=== PATIENT | female | born 1980 | race Caucasian/White ===

== ENCOUNTER 2016-12-01 05:50 | Inpatient (IN) | payer OTHER ==
[2016-12-01] MEDS ORDERED: BUTORPHANOL TARTRATE 1 MG/ML VIAL IVPB ONE (06:00)
[2016-12-01] MEDS ORDERED: DEXTROSE 5%-LACTATED RINGERS 1,000 ML IV SCH (06:00)
[2016-12-01] MEDS ORDERED: PROMETHAZINE HCL 25 MG/1 ML VIAL IVPB ONE (06:00)
[2016-12-01 06:38] LABS: BASOPHIL 0.4 % (0-2.0); EOSINOPHIL 0.5 % (0-4.5); MCH 25.4 pg (25.7-33.7); MCHC 32.2 g/dl (32.0-36.0); MEAN CELL VOLUME 78.7 fl (80-96); MEAN PLT VOLUME 8.9 fl (7.5-11.1); NEUTROPHILS 56.4 % (42.8-82.8); PLATELET COUNT 293 K/MM3 (134-434); RDW 15.3 % (11.6-15.6); WHITE BLOOD COUNT 8.3 K/mm3 (4.0-10.0)
[2016-12-01 06:41] VITALS: BMI 30.4
[2016-12-01 06:57] LABS: INR 0.93 (0.82-1.09); PROTHROMBIN TIME (PATIENT) 10.2 SEC (9.98-11.88)
[2016-12-01 07:00] LABS: ACTIVATED PTT 25.3 SECONDS (26.9-34.4)
[2016-12-01 07:03] LABS: CALCIUM 8.5 mg/dL (8.5-10.1); COCKROFT - GAULT 110.67; CREATININE 0.8 mg/dL (0.55-1.02)
--- NOTE | 2016-12-01 07:10 | HP ---
Past Medical History - Primary Care Physician PCP:: Deep Malcolm - Admission Chief Complaint: 38 weeks, labor History of Present Illness: 36 yo f g 9 [id number] edc by sono 12/13/16 , 38 weeks, in labor, cx 8 cm 100 ,vx -2 mi, fhr cat 1, contraction regular History Source: Patient Limitations to Obtaining History: Language Barrier - Past Medical History ...: 9 ...Para: 6 ...Term: 6 ...: 0 ...Spon : 1 ...Induced : 0 ...Multiple Gestation: 0 ...LMP: 03/08/16 ... Weeks Gestation by Dates: 38.1 ...EDC by Dates: 12/13/16 ...EDC by Sono: 12/14/16 Additional OB History: 6 . no complication Heme/Onc: Yes: Anemia - Past Surgical History Past Surgical History: Yes: None Hx Myomectomy: No Hx Transabdominal Cerclage: No - Smoking History Smoking history: Never smoked Have you smoked in the past 12 months: No Aproximately how many cigarettes per day: 0 - Alcohol/Substance Use Hx Alcohol Use: No History of Substance Use: reports: None - Social History History of Recent Travel: No Home Medications - Allergies Allergies/Adverse Reactions: Allergies Allergy/AdvReac Type Severity Reaction Status Date / Time No Known Allergies Allergy Verified 12/01/16 06:57 - Home Medications Home Medications: Ambulatory Orders Vitamins (Sjr) - 1 tab PO DAILY #30 tablet 01/11/15 Review of Systems - Review of Systems Constitutional: reports: No Symptoms Eyes: reports: No Symptoms HENT: reports: No Symptoms Neck: reports: No Symptoms Cardiovascular: reports: No Symptoms Respiratory: reports: No Symptoms Gastrointestinal: reports: No Symptoms Genitourinary: reports: No Symptoms Breasts: reports: No Symptoms Reported Musculoskeletal: reports: No Symptoms Integumentary: reports: No Symptoms Neurological: reports: No Symptoms Endocrine: reports: No Symptoms Hematology/Lymphatic: reports: No Symptoms Psychiatric: reports: No Symptoms Physical Exam - Maternity Constitutional: Yes: Well Nourished, No Distress, Calm Eyes: Yes: WNL, Conjunctiva Clear, EOM Intact HENT: Yes: WNL, Atraumatic, Normocephalic Neck: Yes: WNL, Supple, Trachea Midline Cardiovascular: Yes: WNL, Regular Rate and Rhythm Breast(s): Yes: WNL - Abdominal Exam/OB Fundal Height: 40 Number of Fetuses: Single Presentation: Vertex Contractions: Yes Regularity: Regular Intensity: Strong Monitor Mode: External Heart Rate Location: [facility] Category: I Accelerations: Uniform Decelerations: None - Vaginal Exam/OB Vaginal Bleediing: Bloody Show Speculum Exam: No Dilatation (cm): 8 cm Effacement (%): 100 Amniotic Membrane Status: Bulging Presentation: Vertex/Position Station: -2 - Physical Exam Musculoskeletal: Yes: WNL Extremities: Yes: WNL Edema: Yes Edema: LLE: Trace, RLE: Trace Deep Tendon Reflex Grade: Normal +2 Psychiatric: Yes: WNL - Labs Lab Results: CBC, BMP 12/01/16 06:15 Hemorrhage Risk Assessment - Risk Factors Medium Risk Factors: Yes: Multiple gestation Risk Score: 1 Risk Level: Medium Risk Problem List - Problems (1) with 38 completed weeks gestation Code(s): Z3A.38 - 38 WEEKS GESTATION OF (2) Labor established Code(s): [id number] - (3) Multiparity, grand, in labor and delivery, antepartum Code(s): O09.40 - SUPERVISION OF W GRAND MULTIPARITY, UNSP TRIMESTER Qualifiers: Trimester: third trimester Qualified Code(s): O09.43 - Supervision of with grand multiparity, third trimester Assessment/Plan admit, fhm, wants pain meds
[2016-12-01] MEDS ORDERED: BENZOCAINE 20% 57 GM BOTTLE TP PRN (07:48)
[2016-12-01] MEDS ORDERED: METHYLERGONOVINE MALEATE 0.2 MG/1 ML AMP IM PRN (07:48)
[2016-12-01] MEDS ORDERED: WITCH HAZEL 50% (TUCKS) 40 PAD/JAR PAD TP PRN (07:48)
[2016-12-01] MEDS ORDERED: BENZOCAINE 28 GM HEMORRHOIDAL OINTMENT TP PRN (07:48)
[2016-12-01] MEDS ORDERED: BISACODYL 10 MG SUPP.RECT RC PRN (07:48)
[2016-12-01] MEDS ORDERED: D5W-LR W/ 20 UNITS OXYTOCIN 1,000 ML IV SCH (08:00)
[2016-12-01] MEDS: FERROUS SO4 325 MG TABLET (FP) PO SCH ×2 (09:52→21:37)
[2016-12-01] MEDS: PRENATAL VITAMINS W/ FOLIC ACID TABLET (FP) PO SCH (09:52)
[2016-12-01] MEDS ORDERED: PRENATAL VITAMINS W/ FOLIC ACID TABLET (FP) PO SCH (10:00)
[2016-12-01] MEDS: ACETAMINOPHEN 325 MG TABLET (FP) PO PRN (12:10)
[2016-12-02 06:52] LABS: BASOPHIL 0.4 % (0-2.0); EOSINOPHIL 0.5 % (0-4.5); MCH 25.8 pg (25.7-33.7); MCHC 32.9 g/dl (32.0-36.0); MEAN CELL VOLUME 78.3 fl (80-96); MEAN PLT VOLUME 8.4 fl (7.5-11.1); NEUTROPHILS 54.1 % (42.8-82.8); PLATELET COUNT 242 K/MM3 (134-434); RDW 15.5 % (11.6-15.6); WHITE BLOOD COUNT 10.5 K/mm3 (4.0-10.0)
[2016-12-02] MEDS: IBUPROFEN 600 MG TABLET (FP) PO PRN ×2 (08:21→21:28)
[2016-12-02] MEDS: ACETAMINOPHEN 325 MG TABLET (FP) PO PRN ×2 (08:22→21:25)
[2016-12-02] MEDS ORDERED: DIPHTH,PERTUSS(ACELL),TET 0.5 ML DISP.SYRIN IM ONE (10:00)
[2016-12-02] MEDS: FERROUS SO4 325 MG TABLET (FP) PO SCH ×2 (10:00→21:25)
[2016-12-02] MEDS: PRENATAL VITAMINS W/ FOLIC ACID TABLET (FP) PO SCH (10:00)
[2016-12-02] MEDS ORDERED: SENNOSIDES/DOCUSATE COMBO (SENNA PLUS) TABLET (UD) PO PRN (22:00)
[2016-12-03 08:31] VITALS: BP 121/78; PULSE 69; TEMP 98.2
[2016-12-03] MEDS: PRENATAL VITAMINS W/ FOLIC ACID TABLET (FP) PO SCH (10:07)
[2016-12-03] MEDS: FERROUS SO4 325 MG TABLET (FP) PO SCH (10:07)
--- NOTE | 2016-12-03 10:27 | PN ---
Post Progress Note - Subjective Subjective: no complains Post Day: 2 Type of Delivery: Vital Signs: Vital Signs Temperature 98.2 F 12/03/16 08:30 Pulse Rate 69 12/03/16 08:30 Respiratory Rate 20 12/03/16 08:30 Blood Pressure 121/78 12/03/16 08:30 O2 Sat by Pulse Oximetry (%) 99 12/01/16 09:00 Breast Exam: Yes: Soft, Other (BF ). No: Engorged Uterus: Yes: Fundus Firm, Fundus below umbilicus, Non-tender Lochia: Yes: Rubra Lochia, amount: Moderate Extremities: Yes: Calves non-tender Perineum: Yes: Intact Activity: Ambulating - Labs Labs: CBC WBC 10.5 K/mm3 (4.0-10.0) H 12/02/16 06:25 RBC 3.59 M/mm3 (3.60-5.2) L 12/02/16 06:25 Hgb 9.3 GM/dL (10.7-15.3) L 12/02/16 06:25 Hct 28.1 % (32.4-45.2) L 12/02/16 06:25 MCV 78.3 fl (80-96) L 12/02/16 06:25 MCHC 32.9 g/dl (32.0-36.0) 12/02/16 06:25 RDW 15.5 % (11.6-15.6) 12/02/16 06:25 Plt Count 242 K/MM3 (134-434) 12/02/16 06:25 MPV 8.4 fl (7.5-11.1) 12/02/16 06:25 Neutrophils % 54.1 % (42.8-82.8) 12/02/16 06:25 Lymphocytes % 37.8 % (8-40) 12/02/16 06:25 Monocytes % 7.2 % (3.8-10.2) 12/02/16 06:25 Eosinophils % 0.5 % (0-4.5) 12/02/16 06:25 Basophils % 0.4 % (0-2.0) 12/02/16 06:25 Assessment/Plan stable. anemia addressed discharge today.
--- NOTE | 2016-12-03 19:32 | DS ---
Physical Exam-TROLLEY COLLECTOR Vital Signs: Vital Signs Temperature 98.2 F 12/03/16 08:30 Pulse Rate 69 12/03/16 08:30 Respiratory Rate 20 12/03/16 08:30 Blood Pressure 121/78 12/03/16 08:30 O2 Sat by Pulse Oximetry (%) 99 12/01/16 09:00 Constitutional: Yes: Well Nourished, No Distress, Calm Eyes: Yes: WNL, Conjunctiva Clear, EOM Intact HENT: Yes: WNL, Atraumatic, Normocephalic Neck: Yes: WNL, Supple, Trachea Midline Cardiovascular: Yes: WNL, Regular Rate and Rhythm Respiratory: Yes: WNL, Regular, CTA Bilaterally Gastrointestinal: Yes: WNL ...Rectal Exam: Yes: WNL Renal/: Yes: WNL ....Post : Yes: Uterus firm, Uterus non-tender, Slight lochia rubra Breast(s): Yes: WNL Musculoskeletal: Yes: WNL Extremities: Yes: WNL Edema: No Integumentary: Yes: WNL Neurological: Yes: WNL, Alert, Oriented ...Motor Strength: WNL Psychiatric: Yes: WNL, Alert, Oriented Labs: CBC, BMP 12/02/16 06:25 12/01/16 06:15 Delivery - Delivery Vaginal Delivery: Spontaneous (no complication) Type of Anesthesia: None Episiotomy/Laceration: None EBL (cc): 350 Delivery, Single - Stages of Labor Date 1st Stage Initiatied: 12/01/16 Time 1st Stage Initiated: 04:20 Date 2nd Stage Initiated: 12/01/16 Time 2nd Stage Initiated: 07:35 Date of Delivery: 12/01/16 Time of Delivery: 07:42 Time Placenta Delivered: 07:45 Placenta: Yes: Spontaneous - Condition of [place] Winder/Director Of Diagnostic Imaging Present: No Gender: Male Weight: 8 lb 2 oz Total Hours ROM (Hrs/Mins): 0/10 - 1 Minute Total Score: 9 5 Minutes Total Score: 10 - Feeding Plan Initial Plan: Exclusive throughout hospitalization Discharge Summary Reason For Visit: LABOR ADMIT Procedures: Principal: Condition: Stable - Instructions Diet, Activity, Other Instructions: Discharge Instructions * Out of Bed * * Regular Diet * Estephania Care * Avoid sex for 6 weeks. * RTC 6 weeks, call for appointment. If you experience excessive bleeding or fever over 101 degrees, call doctor, the clinic or go to the Emergency Room. Referrals: Deep Malcolm MD [Staff Physician] - Disposition: HOME - Home Medications Comprehensive Discharge Medication List: Ambulatory Orders Vitamins (Sjr) - 1 tab PO DAILY #30 tablet 01/11/15 Acetaminophen [Tylenol .Regular Strength -] 650 mg PO Q3H PRN #0 tablet Ferrous Sulfate [Feosol] 325 mg PO BID #60 tab 12/03/16 Ibuprofen [Motrin -] 200 mg PO Q4H PRN #0 tablet 12/03/16 Vitamins (Sjr) - 1 tab PO DAILY tablet 12/03/16 Witch Ashley 50% (Tucks) [Tucks Pads -] 1 pad TP PRN PRN #0 pad 12/03/16
== END 2016-12-03 12:15 | disposition home or self-care (01) | DRG 560 ==
LOC: JLDR 05:50 → J3W 09:15
PROVIDERS: ADMIT Obstetrics & Gynecology; ATTEND Obstetrics & Gynecology
PROC: 10E0XZZ Delivery of Products of Conception, External Approach (ICD-10-PCS; principal; 2016-12-01)
DX: O99.02 Anemia complicating childbirth (principal); D64.9 Anemia, unspecified; Z3A.38 38 weeks gestation of pregnancy; Z37.0 Single live birth
CPT/HCPCS: 36415; 59409; 80048; 85025; 85610; 85730; 86593; 86850; 86900; 86901

== ENCOUNTER 2018-10-01 18:17 | Emergency (ER) | payer OTHER ==
[2018-10-01 18:45] VITALS: BP 118/80; PULSE 82; TEMP 99.1; BMI 27.3
--- NOTE | 2018-10-01 19:22 | PDOC ---
History of Present Illness - General Chief Complaint: Cold Symptoms Stated Complaint: FLU SYMPTOMS Time Seen by Provider: 10/01/18 18:47 History Source: Patient - History of Present Illness Timing/Duration: reports: yesterday Past History - Past Medical History Allergies/Adverse Reactions: Allergies Allergy/AdvReac Type Severity Reaction Status Date / Time No Known Allergies Allergy Verified 12/01/16 06:57 Home Medications: Ambulatory Orders Vitamins (Sjr) - 1 tab PO DAILY #30 tablet 01/11/15 Acetaminophen [Tylenol .Regular Strength -] 650 mg PO Q3H PRN #0 tablet Ferrous Sulfate [Feosol] 325 mg PO BID #60 tab 12/03/16 Ibuprofen [Motrin -] 200 mg PO Q4H PRN #0 tablet 12/03/16 Vitamins (Sjr) - 1 tab PO DAILY tablet 12/03/16 Witch Ashley 50% (Tucks) [Tucks Pads -] 1 pad TP PRN PRN #0 pad 12/03/16 Asthma: No Cancer: No Cardiac Disorders: No COPD: No Diabetes: No HTN: No Seizures: No Thyroid Disease: No - Reproductive History Spontaneous : 0 - Immunization History Immunization Up to Date: Yes - Suicide/Smoking/Psychosocial Hx Smoking Status: No Smoking History: Never smoked Have you smoked in the past 12 months: No Number of Cigarettes Smoked Daily: 0 Cigars Per Day: 0 Hx Alcohol Use: No Drug/Substance Use Hx: No Hx Substance Use Treatment: No Review of Systems - Review of Systems Constitutional: Yes: Fever HEENTM: Yes: Ear Pain, Throat Pain Respiratory: No: Cough, Shortness of Breath ABD/GI: No: Diarrhea, Nausea, Vomiting, Abdominal cramping : No: Dysuria *Physical Exam - Vital Signs Last Vital Signs Temp Pulse Resp BP Pulse Ox 99.1 F 82 17 118/80 99 10/01/18 18:41 10/01/18 18:41 10/01/18 18:41 10/01/18 18:41 10/01/18 18:41 - Physical Exam General Appearance: Yes: Appropriately Dressed. No: Apparent Distress HEENT: positive: Normal ENT Inspection, Normal Voice. negative: Scleral Icterus (R), Scleral Icterus (L) Neck: positive: Supple. negative: Lymphadenopathy (R), Lymphadenopathy (L) Respiratory/Chest: positive: Lungs Clear, Normal Breath Sounds. negative: Respiratory Distress Cardiovascular: positive: Regular Rate, S1, S2 Gastrointestinal/Abdominal: positive: Soft. negative: Tender Musculoskeletal: negative: CVA Tenderness Integumentary: positive: Dry, Warm Neurologic: positive: Fully Oriented, Alert, Normal Mood/Affect Medical Decision Making - Medical Decision Making 10/01/18 19:19 38-year-old female, ~ 9 weeks with no issues w/ so far, here with sore throat with R ear pain, subj fever and body aches since yesterday. States she has a child at home recently diagnosed with the flu. Patient denies cough, shortness of breath or chest pain. No abdominal pain, vaginal bleeding or dysuria at this time See exam Viral syndrome in +flu contact a home Well vladimir and stable w/ unremarkable exam -flu swab pending 10/01/18 20:01 Flu negative. Discharge with supportive treatment *DC/Admit/Observation/Transfer Diagnosis at time of Disposition: Viral syndrome - Discharge Dispostion Disposition: HOME Condition at time of disposition: Good - Referrals - Patient Instructions Printed Discharge Instructions: DI for Viral Syndrome Additional Instructions: Your flu test was negative. Rest, maintain adequate hydration and take tylenol as needed for pain and/or fever. Return to ER for worsening of symptoms, otherwise continue following up with your OB - Post Discharge Activity
== END 2018-10-01 20:25 | disposition home or self-care (01) ==
LOC: JERFT 18:17
DX: O26.891 Other specified pregnancy related conditions, first trimester (principal); B34.9 Viral infection, unspecified; Z3A.09 9 weeks gestation of pregnancy
CPT/HCPCS: 87804; 99281-25

== ENCOUNTER 2018-10-05 02:47 | Emergency (ER) | payer OTHER ==
[2018-10-05 04:09] VITALS: BP 121/81; PULSE 85; TEMP 98.4; BMI 25.6
--- NOTE | 2018-10-05 04:27 | PDOC ---
Attending Attestation - Resident Resident Name: DimitriosarieTha bolivar - ED Attending Attestation I have performed the following: I have examined & evaluated the patient, The case was reviewed & discussed with the resident, I agree w/resident's findings & plan, Exceptions are as noted - HPI HPI: 38 yo F currently 6 WGA by LMP presents with congestion, cough, intermittent vomiting. She has been able to keep some food down, but the vomiting is the most concerning symptom for her. She states that she does not know what medications are safe in , so she has been taking tylenol. - Physicial Exam PE: GENERAL: Awake, alert, and fully oriented, in no acute distress HEAD: No signs of trauma EYES: PERRLA, EOMI, sclera anicteric, conjunctiva clear ENT: Auricles normal inspection, hearing grossly normal, nares patent, oropharynx clear without exudates. Dry mucosa NECK: Normal ROM, supple, no lymphadenopathy, JVD, or masses LUNGS: Breath sounds equal, clear to auscultation bilaterally. No wheezes, and no crackles HEART: Regular rate and rhythm, normal S1 and S2, no murmurs, rubs or gallops ABDOMEN: Soft, nontender, normoactive bowel sounds. No guarding, no rebound. No masses EXTREMITIES: Normal range of motion, no edema. No clubbing or cyanosis. No cords, erythema, or tenderness NEUROLOGICAL: Cranial nerves II through XII grossly intact. Normal speech, normal gait. Motor and sensation intact SKIN: Warm, Dry, normal turgor, no rashes or lesions noted. - Medical Decision Making Pt appears mildly dehydrated in ED. Will give zofran and IV fluids for symptomatic treatment. DC home after fluids. Flu swab was negative on prior ED visit. This is likely a viral syndrome complicated by -related nausea and vomiting. I provided her with a list of OTC medications that are safe in so that she has a reference.
--- NOTE | 2018-10-05 04:29 | PDOC ---
History of Present Illness - General Chief Complaint: Cold Symptoms Stated Complaint: FLU Time Seen by Provider: 10/05/18 04:26 - History of Present Illness Initial Comments: 10/05/18 04:28 Ms. Silverman is a 38 yo female, 6 weeks and recently evaluated in this ED for viral illness symptoms 10/01/18 who presents for evaluation of continuation of symptoms. Patient has previously had negative flu. Patient re-presented as she had multiple episodes of nausea and vomiting. Has been hesitant to take medications given her . Endorses intermittent fever, chills, headache, and body aches. The patient denies chest pain, shortness of breath, and dizziness. Denies diarrhea and constipation. Denies dysuria, frequency, urgency and hematuria. Past History - Past Medical History Allergies/Adverse Reactions: Allergies Allergy/AdvReac Type Severity Reaction Status Date / Time No Known Allergies Allergy Verified 10/05/18 04:09 Home Medications: Ambulatory Orders Vitamins (Sjr) - 1 tab PO DAILY #30 tablet 01/11/15 Acetaminophen [Tylenol .Regular Strength -] 650 mg PO Q3H PRN #0 tablet Ferrous Sulfate [Feosol] 325 mg PO BID #60 tab 12/03/16 Ibuprofen [Motrin -] 200 mg PO Q4H PRN #0 tablet 12/03/16 Vitamins (Sjr) - 1 tab PO DAILY tablet 12/03/16 Witch Ashley 50% (Tucks) [Tucks Pads -] 1 pad TP PRN PRN #0 pad 12/03/16 Asthma: No Cancer: No Cardiac Disorders: No COPD: No Diabetes: No HTN: No Seizures: No Thyroid Disease: No - Reproductive History Spontaneous : 0 - Immunization History Immunization Up to Date: Yes - Suicide/Smoking/Psychosocial Hx Smoking Status: No Smoking History: Never smoked Have you smoked in the past 12 months: No Number of Cigarettes Smoked Daily: 0 Cigars Per Day: 0 Information on smoking cessation initiated: No Hx Alcohol Use: No Drug/Substance Use Hx: No Hx Substance Use Treatment: No Review of Systems - Review of Systems Comments:: 10/05/18 04:28 GENERAL/CONSTITUTIONAL: +Subjective fever/chills. No weakness. HEAD, EYES, EARS, NOSE AND THROAT: No change in vision. No ear pain or discharge. No sore throat. CARDIOVASCULAR: No chest pain or shortness of breath RESPIRATORY: No cough, wheezing, or hemoptysis. GASTROINTESTINAL: +N/V as described. No diarrhea or constipation. GENITOURINARY: No dysuria, frequency, or change in urination. MUSCULOSKELETAL: +Body aches intermittently. SKIN: No rash NEUROLOGIC: +Headache as described. No vertigo, loss of consciousness, or change in strength/sensation. ENDOCRINE: No increased thirst. No abnormal weight change HEMATOLOGIC/LYMPHATIC: No anemia, easy bleeding, or history of blood clots. ALLERGIC/IMMUNOLOGIC: No hives or skin allergy. *Physical Exam - Vital Signs Last Vital Signs Temp Pulse Resp BP Pulse Ox 98.4 F 85 19 121/81 99 10/05/18 02:47 10/05/18 02:47 10/05/18 02:47 10/05/18 02:47 10/05/18 02:47 - Physical Exam Comments: 10/05/18 04:28 GENERAL: Awake, alert, and fully oriented, in no acute distress HEAD: No signs of trauma, normocephalic, atraumatic EYES: PERRLA, EOMI, sclera anicteric, conjunctiva clear ENT: Auricles normal inspection, hearing grossly normal, nares patent, oropharynx clear without exudates. Moist mucosa NECK: Normal ROM, supple, no lymphadenopathy, JVD, or masses LUNGS: No distress, speaks full sentences, clear to auscultation bilaterally HEART: Regular rate and rhythm, normal S1 and S2, no murmurs, rubs or gallops, peripheral pulses normal and equal bilaterally. ABDOMEN: Soft, nontender, normoactive bowel sounds. No guarding, no rebound. No masses EXTREMITIES: Normal inspection, Normal range of motion, no edema. No clubbing or cyanosis. NEUROLOGICAL: Cranial nerves II through XII grossly intact. Normal speech, normal gait, no focal sensorimotor deficits SKIN: Warm, Dry, normal turgor, no rashes or lesions noted. Medical Decision Making - Medical Decision Making 10/05/18 05:25 Ms. Silverman is a 38 yo female w/ pmh as described who presents for evaluation of viral illness symptoms. Patient educated regarding medications safe to take in and given zofran/fluids for symptomatic improvement. Patient feeling better and safe for discharge - no concern for acute process at this time. Discharging to home. *DC/Admit/Observation/Transfer Diagnosis at time of Disposition: Nausea & vomiting Qualifiers: Vomiting type: unspecified Vomiting Intractability: non-intractable Qualified Code(s): R11.2 - Nausea with vomiting, unspecified - Discharge Dispostion Disposition: HOME Condition at time of disposition: Fair - Referrals - Patient Instructions Printed Discharge Instructions: DI for -- Discomforts and Remedies Additional Instructions: You were evaluated today in the ER for your symptoms. We hydrated you and gave you medication for your nausea. Please follow-up with CATALYST OPERATOR CHIEF for further evaluation. Return to ER if any difficulty eating, fever, chills, pain, or other concerning symptoms. Usted fue evaluado hoy en la vicenta de emergencias por cris sntomas. Te hidratamos y te administramos medicamentos para la nusea. Por favor ajit un seguimiento con un obstetra / gineclogo para marah evaluacin adicional. Regrese a la vicenta de emergencias si tiene alguna dificultad para comer, fiebre, escalofros, dolor u otros sntomas relacionados. Print Language: LATVIAN - Post Discharge Activity
[2018-10-05] MEDS ORDERED: SODIUM CHLORIDE 1,000 ML IV STA (04:47)
[2018-10-05] MEDS ORDERED: ONDANSETRON 4 MG/2 ML VIAL IVPUSH ONE (04:59)
[2018-10-05] MEDS ORDERED: ONDANSETRON 4 MG/2 ML VIAL ONE (05:08)
== END 2018-10-05 06:28 | disposition home or self-care (01) ==
LOC: JER 02:47
DX: O26.891 Other specified pregnancy related conditions, first trimester (principal); O98.511 Other viral diseases complicating pregnancy, first trimester; B33.8 Other specified viral diseases; Z3A.01 Less than 8 weeks gestation of pregnancy
CPT/HCPCS: 99281-25; J7030

== ENCOUNTER 2019-05-26 03:59 | Inpatient (IN) | payer OTHER ==
[2019-05-26 04:52] VITALS: BMI 31.6
[2019-05-26] MEDS ORDERED: BUTORPHANOL TARTRATE 1 MG/ML VIAL ONE ×2 (04:59)
[2019-05-26] MEDS ORDERED: PROMETHAZINE HCL 25 MG/1 ML VIAL ONE (05:00)
[2019-05-26 05:04] LABS: BASO % 1.2 % (0-2.0); EOS % 0.7 % (0-4.5); HEMATOCRIT 33.8 % (32.4-45.2); HEMOGLOBIN 11.1 GM/dL (10.7-15.3); LYMPH % 32.9 % (8-40); MCH 27.2 pg (25.7-33.7); MCHC 32.9 g/dl (32.0-36.0); MEAN CELL VOLUME 82.7 fl (80-96); MEAN PLT VOLUME 9.1 fl (7.5-11.1); MONO % 6.5 % (3.8-10.2); NEUT % 58.7 % (42.8-82.8); PLATELET COUNT 311 K/MM3 (134-434); RBC 4.08 M/mm3 (3.60-5.2); RDW 13.7 % (11.6-15.6); WHITE BLOOD COUNT 9.2 K/mm3 (4.0-10.0)
[2019-05-26] MEDS ORDERED: BUTORPHANOL TARTRATE 1 MG/ML VIAL IVPB ONE (05:09)
[2019-05-26] MEDS ORDERED: AMPICILLIN - 2 GM in SODIUM CHLORIDE 100 ML IVPB ONE (05:09)
[2019-05-26] MEDS ORDERED: PROMETHAZINE HCL 25 MG/1 ML VIAL IVPUSH ONE (05:09)
[2019-05-26 05:15] LABS: INR 0.9 (0.83-1.09); PROTHROMBIN TIME (PATIENT) 10.6 SEC (9.7-13.0)
[2019-05-26] MEDS ORDERED: ELECTROLYTE-148 SOLN 1,000 ML IV SCH (05:15)
--- NOTE | 2019-05-26 05:15 | HP ---
Past Medical History - Admission Chief Complaint: Labor pain History of Present Illness: 38 yo , LMP 08/21/18, EDC 05/30/19, admitted for labor pain. Upon admission she was 6cm dilated with ruptured membrane. History Source: Patient Limitations to Obtaining History: No Limitations - Past Medical History ...: 9 ...Para: 7 ...Term: 7 ...: 0 ...Spon : 1 ...Induced : 0 ...Multiple Gestation: 0 ...LMP: 08/21/18 ... Weeks Gestation by Dates: 39.5 ...EDC by Dates: 05/28/19 ...EDC by Sono: 05/30/19 Heme/Onc: Yes: Anemia - Past Surgical History Past Surgical History: Yes: None Hx Myomectomy: No Hx Transabdominal Cerclage: No - Smoking History Smoking history: Never smoked Have you smoked in the past 12 months: No Aproximately how many cigarettes per day: 0 - Alcohol/Substance Use Hx Alcohol Use: No History of Substance Use: reports: None - Social History History of Recent Travel: No Home Medications - Allergies Allergies/Adverse Reactions: Allergies Allergy/AdvReac Type Severity Reaction Status Date / Time No Known Allergies Allergy Verified 05/23/19 05:42 - Home Medications Home Medications: Ambulatory Orders NK [No Known Home Medication] 05/23/19 Family Medical History Family History: Unremarkable Review of Systems - Review of Systems Constitutional: reports: No Symptoms Eyes: reports: No Symptoms HENT: reports: No Symptoms Neck: reports: No Symptoms Cardiovascular: reports: No Symptoms Respiratory: reports: No Symptoms Gastrointestinal: reports: No Symptoms Genitourinary: reports: Other (Leakage of fluid) Breasts: reports: No Symptoms Reported Musculoskeletal: reports: No Symptoms Integumentary: reports: No Symptoms Neurological: reports: No Symptoms Endocrine: reports: No Symptoms Hematology/Lymphatic: reports: No Symptoms Psychiatric: reports: No Symptoms Pain Intensity: 7 Physical Exam - Maternity Constitutional: Yes: No Distress Eyes: Yes: Conjunctiva Clear HENT: Yes: Atraumatic Neck: Yes: Supple Cardiovascular: Yes: Regular Rate and Rhythm Lungs: Clear to auscultation - Abdominal Exam/OB Number of Fetuses: Single Presentation: Vertex - Vaginal Exam/OB Dilatation (cm): 6 Effacement (%): 90 Amniotic Membrane Status: Ruptured Presentation: Vertex/Position Station: -1 - Physical Exam Musculoskeletal: Yes: WNL Extremities: Yes: WNL Integumentary: Yes: WNL Psychiatric: Yes: Alert, Oriented - Labs Lab Results: CBC, BMP 05/26/19 04:50 Problem List - Problems (1) Pain during labor Problems reviewed: Yes Code(s): O99.89 - OTH DISEASES AND CONDITIONS COMPL PREG/CHLDBRTH; R52 - PAIN, UNSPECIFIED Assessment/Plan 39 weeks gestation Active labor Analgesia as needed GBS prophylaxis Anticipate
[2019-05-26 05:18] LABS: ACTIVATED PTT 27.6 SECONDS (25.2-36.5)
[2019-05-26 05:24] LABS: BLOOD UREA NITROGEN 12.1 mg/dL (7-18); CREATININE 0.7 mg/dL (0.55-1.3); POTASSIUM 3.9 mmol/L (3.5-5.1)
[2019-05-26] MEDS ORDERED: OXYTOCIN 20 UNITS in 0.9% NS 20 UNIT/1,000 ML INFUS.BAG IV ONE ×2 (06:00→08:22)
[2019-05-26] MEDS ORDERED: LIDOCAINE HCL 1% PRESERVATIVE FREE - 30ML VIAL ONE (06:00)
[2019-05-26] MEDS ORDERED: METHYLERGONOVINE MALEATE 0.2 MG/1 ML AMP IM PRN (06:23)
[2019-05-26] MEDS ORDERED: BISACODYL 10 MG SUPP.RECT RC PRN (06:23)
[2019-05-26] MEDS ORDERED: WITCH HAZEL 50% (TUCKS) 40 PAD/JAR PAD TP PRN (06:23)
[2019-05-26] MEDS ORDERED: BENZOCAINE 20% 57 GM BOTTLE TP PRN (06:23)
[2019-05-26] MEDS ORDERED: BENZOCAINE 28 GM HEMORRHOIDAL OINTMENT TP PRN (06:23)
--- NOTE | 2019-05-26 06:26 | PN ---
Delivery - Delivery Vaginal Delivery: Spontaneous Episiotomy/Laceration: None EBL (cc): 250 Delivery, Single - Feeding Plan Initial Plan: Elected not to breastfeed exclusively throughout hospitalization Remarks - Remarks Remarks: Normal spontaneous vaginal delivery of a live infant over intact perineum. Nose / Oropharynx suctioned @ perineum. Cord clamped and cut. Baby handed to nurse. Placenta expelled spontaneously intact. Mother in stable condition
[2019-05-26] MEDS ORDERED: OXYTOCIN 20 UNITS in 0.9% NS 20 UNIT/1,000 ML INFUS.BAG IV SCH (06:30)
[2019-05-26] MEDS ORDERED: ACETAMINOPHEN 325 MG TABLET (FP) ONE (07:46)
[2019-05-26] MEDS ORDERED: IBUPROFEN 600 MG TABLET (FP) PO ONE (07:46)
[2019-05-26] MEDS: IBUPROFEN 600 MG TABLET (FP) PO PRN ×2 (07:50→14:33)
[2019-05-26] MEDS: ACETAMINOPHEN 325 MG TABLET (FP) PO PRN ×2 (07:50→14:34)
[2019-05-26] MEDS: PRENATAL VITAMINS W/ FOLIC ACID TABLET (FP) PO SCH (10:18)
[2019-05-26] MEDS: FERROUS SO4 325 MG TABLET (FP) PO SCH ×2 (10:18→23:17)
[2019-05-27 08:35] LABS: BASO % 1.1 % (0-2.0); EOS % 0.7 % (0-4.5); HEMATOCRIT 31.1 % (32.4-45.2); HEMOGLOBIN 10.2 GM/dL (10.7-15.3); LYMPH % 39.4 % (8-40); MCH 27.4 pg (25.7-33.7); MCHC 32.8 g/dl (32.0-36.0); MEAN CELL VOLUME 83.6 fl (80-96); MEAN PLT VOLUME 9.4 fl (7.5-11.1); MONO % 5.7 % (3.8-10.2); NEUT % 53.1 % (42.8-82.8); PLATELET COUNT 260 K/MM3 (134-434); RBC 3.72 M/mm3 (3.60-5.2); RDW 14.1 % (11.6-15.6); WHITE BLOOD COUNT 9.6 K/mm3 (4.0-10.0)
[2019-05-27] MEDS ORDERED: FLU VACC QS2019-20(6MOS UP)/PF 60 MCG/0.5 ML SYRINGE IM ONE (10:00)
[2019-05-27] MEDS ORDERED: DIPHTH,PERTUSS(ACELL),TET 0.5 ML DISP.SYRIN IM ONE (10:00)
[2019-05-27] MEDS ORDERED: FLU VACCINE QUAD 60 MCG/0.5 ML (MDV 19-20) IM ONE (10:00)
[2019-05-27] MEDS: FERROUS SO4 325 MG TABLET (FP) PO SCH ×2 (10:05→22:15)
[2019-05-27] MEDS: PRENATAL VITAMINS W/ FOLIC ACID TABLET (FP) PO SCH (10:05)
--- NOTE | 2019-05-27 16:32 | PN ---
Post Progress Note - Subjective Subjective: ambulating, tolerating PO, lochia decreased, voiding, breast feeding Type of Delivery: Vital Signs: Vital Signs Temperature 98.7 F 05/27/19 07:30 Pulse Rate 69 05/27/19 07:30 Respiratory Rate 18 05/27/19 07:30 Blood Pressure 114/70 05/27/19 07:30 O2 Sat by Pulse Oximetry (%) Breast Exam: Yes: Other (deferred) Uterus: Yes: Fundus Firm Abdomen/GI: Yes: Abdomen soft Lochia, amount: Small Extremities: Yes: Calves non-tender Activity: Ambulating - Labs Labs: CBC WBC 9.6 K/mm3 (4.0-10.0) 05/27/19 07:45 RBC 3.72 M/mm3 (3.60-5.2) 05/27/19 07:45 Hgb 10.2 GM/dL (10.7-15.3) L 05/27/19 07:45 Hct 31.1 % (32.4-45.2) L 05/27/19 07:45 MCV 83.6 fl (80-96) 05/27/19 07:45 MCH 27.4 pg (25.7-33.7) 05/27/19 07:45 MCHC 32.8 g/dl (32.0-36.0) 05/27/19 07:45 RDW 14.1 % (11.6-15.6) 05/27/19 07:45 Plt Count 260 K/MM3 (134-434) 05/27/19 07:45 MPV 9.4 fl (7.5-11.1) 05/27/19 07:45 Absolute Neuts (auto) 5.1 K/mm3 (1.5-8.0) 05/27/19 07:45 Neutrophils % 53.1 % (42.8-82.8) 05/27/19 07:45 Lymphocytes % 39.4 % (8-40) 05/27/19 07:45 Monocytes % 5.7 % (3.8-10.2) 05/27/19 07:45 Eosinophils % 0.7 % (0-4.5) 05/27/19 07:45 Basophils % 1.1 % (0-2.0) 05/27/19 07:45 Nucleated RBC % 0 % (0-0) 05/27/19 07:45 Problem List - Problems (1) Labor established Code(s): MMA9737 - Assessment/Plan PPD # 1 in stable condition -Encourage ambulation -anticipate D/C home tomorrow
[2019-05-27] MEDS ORDERED: SENNOSIDES/DOCUSATE COMBO (SENNA PLUS) TABLET (UD) PO PRN (22:00)
--- NOTE | 2019-05-28 10:27 | DS ---
Physical Examination Vital Signs: Vital Signs Temperature 98.9 F 05/27/19 21:13 Pulse Rate 78 05/27/19 21:13 Respiratory Rate 20 05/27/19 21:13 Blood Pressure 110/68 05/27/19 21:13 O2 Sat by Pulse Oximetry (%) Findings/Remarks: Ambulating, breast feeding, tolerating PO, lochia decreased, voiding. PP precautions discussed. Constitutional: Yes: Calm Eyes: Yes: Conjunctiva Clear HENT: Yes: Atraumatic Neck: Yes: Supple Cardiovascular: Yes: Regular Rate and Rhythm Respiratory: Yes: Jose Miguel-Banda Gastrointestinal: Yes: Soft ...Rectal Exam: Yes: Other (deferred) Renal/: Yes: Other (deferred) Musculoskeletal: Yes: Other Extremities: Yes: Other Integumentary: Yes: WNL Neurological: Yes: Alert, Oriented ...Motor Strength: WNL Psychiatric: Yes: Alert, Oriented Labs: CBC, BMP 05/27/19 07:45 05/26/19 04:50 Discharge Summary Problems reviewed: Yes Reason For Visit: LABOR ADMIT Current Active Problems Pain during labor (Acute) Procedures: Principal: Hospital Course: Uncomplicated vaginal delivery and recovery Plan of Treatment: Please follow up in 6 weeks for visit. Contact MD with any questions or concerns. Follow instructions as discussed at bedside Condition: Stable - Instructions Diet, Activity, Other Instructions: Please return for regular diet and activity as tolerated. Follow up in 5-6weeks for visit. Call MD with any questions or concerns. Referrals: Ivelisse Aggarwal CNM [Certified Nurse Rubber Covering Machine Operator] - Disposition: HOME - Home Medications Comprehensive Discharge Medication List: Ambulatory Orders Vitamins (Sjr) - 1 tab PO DAILY 05/26/19 Acetaminophen [Tylenol] 650 mg PO Q6H PRN #20 capsule MDD 5 05/27/19 Ibuprofen 600 mg PO Q6H PRN #30 tablet 05/27/19
[2019-05-28 11:28] VITALS: BP 123/80; PULSE 72; TEMP 97.9
[2019-05-28] MEDS: FERROUS SO4 325 MG TABLET (FP) PO SCH (11:48)
[2019-05-28] MEDS: PRENATAL VITAMINS W/ FOLIC ACID TABLET (FP) PO SCH (11:48)
== END 2019-05-28 12:53 | disposition home or self-care (01) | DRG 560 ==
LOC: JDEL 03:59 → JLDR 04:10 → J3W 08:46
PROVIDERS: ADMIT Obstetrics & Gynecology; ATTEND Obstetrics & Gynecology
PROC: 10E0XZZ Delivery of Products of Conception, External Approach (ICD-10-PCS; principal; 2019-05-26)
DX: O80 Encounter for full-term uncomplicated delivery (principal); Z3A.39 39 weeks gestation of pregnancy; Z37.0 Single live birth
CPT/HCPCS: 36415; 59409; 80048; 85025; 85610; 85730; 86593; 86850; 86900; 86901; 90686; 90715

== ENCOUNTER 2021-11-26 21:33 | Emergency (ER) | payer OTHER ==
[2021-11-26 21:56] VITALS: BP 130/83; PULSE 76; TEMP 98.3; BMI 28.5
== END 2021-11-27 01:10 | disposition home or self-care (01) ==
LOC: JER 21:33
DX: R05.1 Acute cough (principal); J06.9 Acute upper respiratory infection, unspecified
CPT/HCPCS: 0241U-QW; 71046-TC-FY; 93005; 93010; 99285-25

== ENCOUNTER 2022-06-27 10:45 | Inpatient (IN) | payer OTHER ==
[2022-06-27] MEDS ORDERED: ELECTROLYTE-148 SOLN 1,000 ML IV SCH (11:15)
[2022-06-27] MEDS ORDERED: OXYTOCIN 30 UNITS in 0.9% NS 30 UNIT/500 ML INFUS.BAG IVPB SCH (11:15)
[2022-06-27 11:21] VITALS: BMI 30.9
[2022-06-27] MEDS ORDERED: OXYTOCIN 20 UNITS in 0.9% NS 20 UNIT/1,000 ML INFUS.BAG IV ONE ×2 (11:45→12:11)
[2022-06-27] MEDS ORDERED: OXYTOCIN 30 UNITS in 0.9% NS 30 UNIT/500 ML INFUS.BAG IVPB ONE (11:45)
[2022-06-27 12:24] LABS: BASO % 0.8 % (0-2.0); EOS % 0.7 % (0-4.5); HEMATOCRIT 34.4 % (32.4-45.2); LYMPH % 30.3 % (8-40); MCH 27.1 pg (25.7-33.7); MCHC 32.1 g/dl (32.0-36.0); MEAN CELL VOLUME 84.4 fl (80-96); MEAN PLT VOLUME 8.4 fl (7.5-11.1); MONO % 6.9 % (3.8-10.2); NEUT % 61.3 % (42.8-82.8); PLATELET COUNT 342 10^3/uL (134-434); RBC 4.08 M/mm3 (3.60-5.2); RDW 17.4 % (11.6-15.6); WHITE BLOOD COUNT 7.8 K/mm3 (4.0-10.0)
[2022-06-27 12:29] LABS: INR 0.94 (0.83-1.09); PROTHROMBIN TIME (PATIENT) 10.8 SEC (9.7-13.0)
[2022-06-27 12:32] LABS: ACTIVATED PTT 26.4 SECONDS (25.2-36.5)
[2022-06-27 12:43] LABS: BLOOD UREA NITROGEN 12.1 mg/dL (7-18)
[2022-06-27 12:47] LABS: CREATININE 0.6 mg/dL (0.55-1.3)
[2022-06-27] MEDS ORDERED: PROMETHAZINE HCL 25 MG/1 ML VIAL IVPB ONE (21:13)
[2022-06-27] MEDS ORDERED: BUTORPHANOL TARTRATE 1 MG/ML VIAL IVPB ONE (21:13)
[2022-06-27] MEDS ORDERED: BUTORPHANOL TARTRATE 2 MG/ML VIAL ONE (21:30)
[2022-06-27] MEDS ORDERED: PROMETHAZINE HCL 25 MG/1 ML VIAL ONE (21:30)
[2022-06-27] MEDS ORDERED: MISOPROSTOL 200 MCG TABLET ONE (21:46)
[2022-06-27] MEDS ORDERED: WITCH HAZEL 50% (TUCKS) 40 PAD/JAR PAD TP PRN (22:35)
[2022-06-27] MEDS ORDERED: BISACODYL 10 MG SUPP.RECT RC PRN (22:35)
[2022-06-27] MEDS ORDERED: BENZOCAINE 20% 57 GM BOTTLE TP PRN (22:35)
[2022-06-27] MEDS ORDERED: METHYLERGONOVINE MALEATE 0.2 MG/1 ML AMP IM PRN (22:35)
[2022-06-27] MEDS ORDERED: ACETAMINOPHEN 325 MG TABLET (FP) PO PRN (22:35)
[2022-06-27] MEDS ORDERED: BENZOCAINE 28 GM HEMORRHOIDAL OINTMENT TP PRN (22:35)
[2022-06-27] MEDS ORDERED: IBUPROFEN 600 MG TABLET (FP) PO PRN (22:35)
[2022-06-27] MEDS ORDERED: OXYTOCIN 20 UNITS in 0.9% NS 20 UNIT/1,000 ML INFUS.BAG IV SCH (22:45)
[2022-06-28 09:10] LABS: BASO % 0.8 % (0-2.0); EOS % 0.3 % (0-4.5); HEMATOCRIT 30.8 % (32.4-45.2); HEMOGLOBIN 9.7 GM/dL (10.7-15.3); MCH 26.6 pg (25.7-33.7); MCHC 31.6 g/dl (32.0-36.0); MEAN CELL VOLUME 84.4 fl (80-96); MEAN PLT VOLUME 8.2 fl (7.5-11.1); MONO % 7.4 % (3.8-10.2); NEUT % 70.5 % (42.8-82.8); PLATELET COUNT 297 10^3/uL (134-434); RBC 3.65 M/mm3 (3.60-5.2); RDW 17.3 % (11.6-15.6); WHITE BLOOD COUNT 11.3 K/mm3 (4.0-10.0)
[2022-06-28] MEDS: PRENATAL VITAMINS W/ FOLIC ACID TABLET (FP) PO SCH (11:44)
[2022-06-28] MEDS ORDERED: SENNOSIDES/DOCUSATE COMBO (SENNA PLUS) TABLET (UD) PO PRN (22:00)
[2022-06-28 22:30] VITALS: RESP 18
[2022-06-29 09:27] VITALS: BP 124/84; PULSE 84; TEMP 98.1
[2022-06-29] MEDS: PRENATAL VITAMINS W/ FOLIC ACID TABLET (FP) PO SCH (09:47)
== END 2022-06-29 12:20 | disposition home or self-care (01) | DRG 560 ==
LOC: JLDR 10:45 → J3W 06-28 00:32
PROVIDERS: ADMIT Obstetrics & Gynecology; ATTEND Obstetrics & Gynecology
PROC: 10E0XZZ Delivery of Products of Conception, External Approach (ICD-10-PCS; principal; 2022-06-27)
PROC: 3E033VJ Introduction of Other Hormone into Peripheral Vein, Percutaneous Approach (ICD-10-PCS; 2022-06-27)
PROC: 10907ZC Drainage of Amniotic Fluid, Therapeutic from Products of Conception, Via Natural or Artificial Opening (ICD-10-PCS; 2022-06-27)
DX: O41.03X0 Oligohydramnios, third trimester, not applicable or unspecified (principal); O98.52 Other viral diseases complicating childbirth; U07.1 COVID-19; Z3A.38 38 weeks gestation of pregnancy; Z37.0 Single live birth
CPT/HCPCS: 36415; 59409; 80048; 82962; 85025; 85610; 85730; 86780; 86850; 86900; 86901; 87340; C9803-CS; U0003; U0005